=== PATIENT | female | born 1955 | race Caucasian/White ===

== ENCOUNTER 2018-11-07 18:50 | Emergency (ER) | payer BC, MEDICARE ==
[2018-11-07 19:09] VITALS: BP 149/87
--- NOTE | 2018-11-07 19:45 | ED ---
Throat Pain/Nasal Congestion - HPI Summary HPI Summary: 63 yr old with the complaint of odd smell in her nose for the past three weeks. The patient has had headache in the frontal area getting progressively worse over the period of the past couple of weeks. The pain is 10/10 earlier but now 7/10. associated nausea and vomiting. The patient has no change in vision, speech, hearing, swallowing, no focal weakness, no parasthesias. No change in gait. The patient has a history of thyroid, breast, and melanoma cancers. - History of Current Complaint Chief Complaint: UCHeadache Time Seen by Provider: 11/07/18 19:25 - Allergies/Home Medications Allergies/Adverse Reactions: Allergies Allergy/AdvReac Type Severity Reaction Status Date / Time Adhesive Tape Allergy Intermediate Rash Verified 08/27/14 16:34 banana Allergy Itching Verified 11/07/18 19:16 nickel Allergy Rash And Verified 11/07/18 19:16 Itching Penicillins Allergy Rash Verified 11/07/18 19:16 psyllium Allergy Shortness Verified 11/07/18 19:10 of Breath sulfanilamide Allergy Hives Verified 11/07/18 19:16 Home Medications: Home Medications Omeprazole 40 mg PO DAILY 11/07/18 [History Confirmed 11/07/18] SUMAtriptan TAB* [Imitrex TAB*] 100 mg PO SEE INSTRUCTIONS PRN 11/07/18 [ History Confirmed 11/07/18] PMH/Surg Hx/FS Hx/Imm Hx Endocrine/Hematology History: Reports: Hx Thyroid Disease Denies: Hx Diabetes Cardiovascular History: Denies: Hx Hypertension Respiratory History: Reports: Hx Asthma Denies: Hx Chronic Obstructive Pulmonary Disease (COPD) GI History: Denies: Hx Ulcer - Cancer History Cancer Type, Location and Year: breast cancer 2012. melanoma x3. thyroid cancer. chemotherapy - Surgical History Surgery Procedure, Year, and Place: Trigger finger release right hand, ganglion cyst removal 2015. left lobe thyroidectomy. gallbladder. lumpectomy. double mastectomy and recontruction. L sided Breast CA; Bilat Mastectomy; Cholecystectomy; Tubal Ligation Infectious Disease History: No Infectious Disease History: Denies: Hx Hepatitis, Hx Human Immunodeficiency Virus (HIV), History Other Infectious Disease, Traveled Outside the [place] in Last 30 Days - Family History Known Family History: Positive: None - Social History Occupation: Disabled Lives: With Family Alcohol Use: Rare Substance Use Type: Reports: None Smoking Status (MU): Never Smoked Tobacco Review of Systems Constitutional: Negative Positive: Photophobia Positive: Other - odd smell in nose Positive: Vomiting, Nausea Positive: Headache. Negative: Weakness, Paresthesia, Numbness, Syncope, Slurred Speech All Other Systems Reviewed And Are Negative: Yes Physical Exam Triage Information Reviewed: Yes Vital Signs On Initial Exam: Initial Vitals Temp Pulse Resp BP Pulse Ox 97.5 F 73 18 149/87 100 11/07/18 19:00 11/07/18 19:00 11/07/18 19:00 11/07/18 19:00 11/07/18 19:00 Vital Signs Reviewed: Yes Appearance: Positive: Well-Appearing, No Pain Distress Skin: Positive: Warm, Skin Color Reflects Adequate Perfusion Head/Face: Positive: Normal Head/Face Inspection Eyes: Positive: EOMI, DARYA ENT: Positive: Normal ENT inspection, Pharynx normal, TMs normal. Negative: Nasal congestion, Nasal drainage Neck: Positive: Supple, Nontender Respiratory/Lung Sounds: Positive: Clear to Auscultation, Breath Sounds Present Cardiovascular: Positive: RRR. Negative: Murmur Abdomen Description: Negative: Distended Musculoskeletal: Positive: Strength/ROM Intact Neurological: Positive: Sensory/Motor Intact, Alert, Oriented to Person Place, Time, CN Intact II-III Psychiatric: Positive: Normal Diagnostics - Vital Signs Vital Signs Temp Pulse Resp BP Pulse Ox 11/07/18 19:00 97.5 F 73 18 149/87 100 - Laboratory Lab Statement: Any lab studies that have been ordered have been reviewed, and results considered in the medical decision making process. EENT Course/Dx - Course Course Of Treatment: 63 yr old with odd smell in nose, headache in frontal area , history of thyroid, breast and melenoma cancers. I recommend to the ER for labs, and contrast CT imaging for further evaluation. - Diagnoses Provider Diagnoses: Headache, Hypertension Discharge - Sign-Out/Discharge Documenting (check all that apply): Patient Departure All imaging exams completed and their final reports reviewed: No Studies - Discharge Plan Condition: Good Disposition: HOME-RECOMMEND TO ED Patient Education Materials: Acute Headache (ED), Hypertension (ED) Referrals: Rosemarie Castanon MD [Primary Care Provider] - Additional Instructions: you need to go to the ER for further work up. Do not delay. You were offered ambulance but declined and stated you want to drive you. - Billing Disposition and Condition Condition: GOOD Disposition: Home-Recommend to ED
== END 2018-11-07 19:41 | disposition home health service (06) ==
LOC: UCCORT 18:50
DX: I10 Essential (primary) hypertension (principal); Z79.899 Other long term (current) drug therapy
CPT/HCPCS: 99212; G0463

== ENCOUNTER 2018-11-07 20:21 | Emergency (ER) | payer MEDICARE ==
[2018-11-07] MEDS ORDERED: Ondansetron INJ* 2 MG/ML VIAL IV ONE (21:10)
[2018-11-07] MEDS ORDERED: Ketorolac INJ* 30 MG/ML 1 ML VIAL IV ONE (21:10)
--- NOTE | 2018-11-07 21:13 | ED ---
Headache - HPI Summary HPI Summary: This patient is a 63 year old F presenting to ED with a chief complaint of KENNEDY since 11/06/18. The CC is described as a band across her forehead with pain behind her right eye. The patient noticed a horrible intermittent smell in news 2 weeks ago that worsened on 11/04/18 and has been constant since then. Patient took migraine medicine twice but vomited within an hour each time. Migraine went away, but patient still reports the smell, N/V. The patient rates the pain 4/10 in severity in the room but it was worse earlier. Symptoms aggravated by nothing. Symptoms alleviated by nothing. Patient reports N/V. Patient denies fever, CP, SOB, neck stiffness, weakness, numbness, visual defects, ear pain. Patient has had post-nasal drip for the past year. Patient takes Omeprazole, Zyrtec, Calcium with Vitamin D. PMHx of thyroid disease, asthma and breast cancer, melanoma, and thyroid cancer, but no HTN, COPD, or ulcer. PSHx of trigger finger release right hand, galgnion cyst removal, left lobe thyroidectomy, gallbladder, lumpectomy, double mastectomy and reconstruction, cholecystectomy, tubal ligation. No known FHx. Patient drinks alcohol but does not use tobacco or substances. - History Of Current Complaint Chief Complaint: EDHeadache Stated Complaint: HEADACHE/NAUSEA/VOMITING PER PT Time Seen by Provider: 11/07/18 20:59 Hx Obtained From: Patient Onset/Duration: Started days ago - KENNEDY started yesterday, Started weeks ago - Smell started 2 weeks ago, Still Present Initially Headache Was: Severe Currently Pain Is: Current Pain Scale(0-10)= - 4, Moderate Timing: Constant - Smell has been constant since 11/04/18, Intermittent, Lasting : - Smell was intemittent until 11/04/18 Location of Headache: Frontal - Band across forehead, Occipital - Behind right eye Aggravating Factor: Nothing Allevating Factors: Nothing Associated Signs And Symptoms: Negative - Fever, CP, SOB, neck stiffness, weakness, numbness, visual defects, ear pain, Nausea, Vomiting - Allergies/Home Medications Allergies/Adverse Reactions: Allergies Allergy/AdvReac Type Severity Reaction Status Date / Time Adhesive Tape Allergy Intermediate Rash Verified 11/07/18 20:27 banana Allergy Itching Verified 11/07/18 20:27 nickel Allergy Rash And Verified 11/07/18 20:27 Itching Penicillins Allergy Rash Verified 11/07/18 20:27 psyllium Allergy Shortness Verified 11/07/18 20:27 of Breath sulfanilamide Allergy Hives Verified 11/07/18 20:27 PMH/Surg Hx/FS Hx/Imm Hx Endocrine/Hematology History: Reports: Hx Thyroid Disease Denies: Hx Diabetes Cardiovascular History: Denies: Hx Hypertension Respiratory History: Reports: Hx Asthma Denies: Hx Chronic Obstructive Pulmonary Disease (COPD) GI History: Denies: Hx Ulcer - Cancer History Cancer Type, Location and Year: breast cancer 2012. melanoma x3. thyroid cancer. chemotherapy - Surgical History Surgery Procedure, Year, and Place: Trigger finger release right hand, ganglion cyst removal 2014. left lobe thyroidectomy. gallbladder. lumpectomy. double mastectomy and recontruction. L sided Breast CA; Bilat Mastectomy; Cholecystectomy; Tubal Ligation Infectious Disease History: No Infectious Disease History: Denies: Hx Hepatitis, Hx Human Immunodeficiency Virus (HIV), History Other Infectious Disease, Traveled Outside the [place] in Last 30 Days - Family History Known Family History: Positive: None - Social History Alcohol Use: Rare Hx Substance Use: No Substance Use Type: Reports: None Hx Tobacco Use: No Smoking Status (MU): Never Smoked Tobacco Review of Systems Negative: Fever Negative: Ear Ache Negative: Chest Pain Negative: Shortness Of Breath Positive: Vomiting, Nausea Musculoskeletal: Negative - Neck stiffness Neurological: Negative - Visual defects Positive: Headache. Negative: Weakness, Numbness All Other Systems Reviewed And Are Negative: Yes Physical Exam - Summary Physical Exam Summary: Appearance: Well appearing, no pain distress Skin: warm, dry, reflects adequate perfusion Head/face: normal Eyes: EOMI, DARYA ENT: normal Neck: supple, non-tender Respiratory: CTA, breath sounds present Cardiovascular: RRR, pulses symmetrical Abdomen: non-tender, soft Musculoskeletal: normal, strength/ROM intact Neuro: normal, sensory motor intact, A&Ox3 GCS: 15 Triage Information Reviewed: Yes Vital Signs On Initial Exam: Initial Vitals Temp Pulse Resp BP Pulse Ox 97.8 F 84 16 150/93 97 11/07/18 20:23 11/07/18 20:23 11/07/18 20:23 11/07/18 20:23 11/07/18 20:23 Vital Signs Reviewed: Yes Diagnostics - Vital Signs Vital Signs Temp Pulse Resp BP Pulse Ox 11/07/18 20:59 187/116 11/07/18 20:23 97.8 F 84 16 150/93 97 - Laboratory Result Diagrams: 11/07/18 21:38 11/07/18 21:38 Lab Statement: Any lab studies that have been ordered have been reviewed, and results considered in the medical decision making process. - CT Sinus CT Interpretation Completed By: Radiologist Summary of CT Findings: 1. Minimal bilateral maxillary sinus disease. 2. Periodontal disease of tooth #15 with question of erosion into the left maxillary sinus which may reflect odontogenic sinus disease. 3. Otherwise negative CT maxillofacial. Dr. Norman has reviewed this radiology report. Brain CT Interpretation Completed By: Radiologist Summary of CT Findings: 1. There has been no change since 04/08/2013. No acute interval intracranial process is identified. 2. Thinning of the lateral left parietal bone which is unchanged. Dr. Norman has reviewed this radiology report. Re-Evaluation - Re-Evaluation First Eval Re-Evaluation Time: 22:20 Comment: Discussed results with patient. Patient will be discharged home with diagnosis of sinusitis and headache. Patient understands and agrees with this plan. Headache Course/Dx - Course Course Of Treatment: This patient is a 63 year old F presenting to ED with a chief complaint of KENNEDY since 11/06/18. In the ED course, patient received Toradol and Zofran. Blood work obtained. CT sinus revealed 1. Minimal bilateral maxillary sinus disease. 2. Periodontal disease of tooth #15 with question of erosion into the left maxillary sinus which may reflect odontogenic sinus disease. 3. Otherwise negative CT maxillofacial. Brain CT revealed 1. There has been no change since 04/08/2013. No acute interval intracranial process is identified. 2. Thinning of the lateral left parietal bone which is unchanged. I discussed results with patient, and she reports feeling better. She is hemodynamically stable and safe for discharge with dx of sinusitis and headache. Strict return precautions given and she will otherwise follow up with her PCP. - Diagnoses Differential Diagnosis/HQI/PQRI: Migraine, Sinus Headache, Tension Headache Provider Diagnoses: Sinusitis, Headache Discharge - Sign-Out/Discharge Documenting (check all that apply): Patient Departure - Discharge Patient Received Moderate/Deep Sedation with Procedure: No - Discharge Plan Condition: Stable Disposition: HOME Prescriptions: Amoxicillin/Clavulanate TAB* [Augmentin TAB 875*] 875 mg PO BID #20 tab Levofloxacin TAB* [Levaquin TAB*] 500 mg PO DAILY #7 tab Ondansetron ODT TAB* [Zofran 4 MG Odt TAB*] 4 mg PO Q8H PRN #15 tab.odt MDD 3 PRN Reason: Nausea Patient Education Materials: Sinusitis (ED), Acute Headache (ED) Referrals: Rosemarie Castanon MD [Primary Care Provider] - 3 Days Additional Instructions: Follow-up with your primary care physician in 3 days. RETURN TO THE ER FOR WORSENING OR CHANGING SYMPTOMS. - Billing Disposition and Condition Condition: STABLE Disposition: Home - Attestation Statements Document Initiated by Mateus: Yes Documenting Scribe: Shekhar Scott Provider For Whom Mateus is Documenting (Include Credential): Ag Norman MD Scribe Attestation: Shekhar Chang, scribed for Ag Norman MD on 11/08/18 at 1047. Scribe Documentation Reviewed: Yes Provider Attestation: The documentation as recorded by the Shekhar groves accurately reflects the service I personally performed and the decisions made by , Ag Norman MD Status of Scrkana Document: Viewed
[2018-11-07 21:48] LABS: ABS Basophils 0.1 10^3/ul (0-0.2); ABS Eosinophils 0.2 10^3/ul (0-0.6); ABS Lymphocytes 1.6 10^3/ul (1.0-4.8); ABS Monocytes 0.7 10^3/ul (0-0.8); ABS Neutrophils 6.2 10^3/ul (1.5-7.7); Eosinophil % 2.1 %; Hematocrit 43 % (35-47); Hemoglobin 14.6 g/dL (12.0-16.0); Lymphocyte % 17.9 %; Mean Corpuscular HGB Conc 34 g/dL (31-36); Mean Corpuscular Hemoglobin 29 pg (27-31); Mean Corpuscular Volume 83 fL (80-97); Mean Platelet Volume 8.4 fL (7.4-10.4); Platelet Count 274 10^3/uL (150-450); Red Blood Count 5.12 10^6 /uL (3.70-4.87); Red Cell Distribution Width 14 % (10.5-15); White Blood Count 8.7 10^3/uL (3.5-10.8)
[2018-11-07 21:55] LABS: Activated Partial Thrombo Time 33.8 seconds (26.0-36.3); INR 0.95 (0.82-1.09)
[2018-11-07 22:03] LABS: Albumin 4.2 g/dL (3.2-5.2); Albumin/Globulin Ratio 1.3 (1-3); BUN/Creatinine Ratio 18.6 (8-20); Calcium 9.7 mg/dL (8.6-10.3); EGFR African American 80.4 (>60); EGFR Non-African American 66.4 (>60); Globulin 3.3 g/dL (2-4); Potassium 3.6 mmol/L (3.5-5.0); Total Bilirubin 0.9 mg/dL (0.2-1.0); Total Protein 7.5 g/dL (6.4-8.9)
[2018-11-07] MEDS ORDERED: Ondansetron ODT TAB* 4 MG PO ONE (22:22)
[2018-11-07] MEDS ORDERED: Amoxicillin/Clavulanate TAB* 875 MG PO ONE (22:22)
[2018-11-07 22:57] VITALS: BP 139/101
== END 2018-11-07 23:00 | disposition home or self-care (01) ==
LOC: ED 20:21
DX: J32.0 Chronic maxillary sinusitis (principal); R51 Headache; K05.6 Periodontal disease, unspecified; Z85.3 Personal history of malignant neoplasm of breast; Z85.850 Personal history of malignant neoplasm of thyroid; Z88.0 Allergy status to penicillin; Z88.2 Allergy status to sulfonamides; Z91.018 Allergy to other foods; Z91.048 Other nonmedicinal substance allergy status
CPT/HCPCS: 36415; 70450; 70486; 80053; 85025; 85610; 85730; 96374; 96375; 99284; A9270-GY; J1885; J2405